=== PATIENT | female | born 1975 | race Two or more races ===

== ENCOUNTER 2024-07-30 09:24 | Emergency (ER) | payer OTHER ==
[2024-07-30 09:41] VITALS: BP 114/64; PULSE 73; RESP 18; TEMP 98.1; BMI 32.2
[2024-07-30] MEDS ORDERED: METHOCARBAMOL 500 MG TABLET ONE (09:50)
[2024-07-30] MEDS ORDERED: predniSONE 20 MG TABLET (UD) ONE (09:50)
[2024-07-30] MEDS ORDERED: LIDOCAINE 4% PATCH TP ONE (09:50)
[2024-07-30] MEDS: METHOCARBAMOL 500 MG TABLET PO ONE (09:57)
[2024-07-30] MEDS: LIDOCAINE 4% PATCH TP ONE (09:57)
[2024-07-30] MEDS: predniSONE 20 MG TABLET (UD) PO ONE (09:58)
== END 2024-07-30 11:12 | disposition home or self-care (01) ==
LOC: JERFT 09:24
DX: S39.012A Strain of muscle, fascia and tendon of lower back, initial encounter (principal); M54.41 Lumbago with sciatica, right side; G89.29 Other chronic pain; X50.1XXA Overexertion from prolonged static or awkward postures, initial encounter; Y99.0 Civilian activity done for income or pay
CPT/HCPCS: 99283-25